=== PATIENT | female | born 1990 | race Caucasian/White ===

== ENCOUNTER 2018-06-09 02:35 | Emergency (ER) | payer MEDICAID, OTHER ==
[~2018-06-09] VITALS: Ht 157.5 cm; Wt 79.2 kg
[2018-06-09 03:05] LABS: CLARITY,URINE CLOUDY (Clear); COLOR,URINE YELLOW (Yellow); GLUCOSE, URINE NEGATIVE (Neg); KETONES,URINE TRACE mg/dl (Neg); LEUKOCYTE ESTERASE ,URINE MODERATE (Neg); NITRITES, URINE POSITIVE (Neg); OCCULT BLOOD,URINE LARGE (Neg); PH,URINE 5.5 (4.8-8.0); PROTEIN,URINE NEGATIVE (Neg); UROBILINOGEN,URINE 0.2 E.U/dL (0.2-1.0)
[2018-06-09 03:08] LABS: UA COLLECTION TYPE CLN CATCH MIDSTREAM
[2018-06-09 03:21] LABS: WBC,URINE TNTC /HPF (0-4)
[2018-06-09 03:22] LABS: BACTERIA,URINE 3+ /HPF (Neg); MUCUS STRANDS NONE SEEN /LPF (Neg); RBC,URINE 20-50 /HPF (0-2); SQUAMOUS EPITHELIAL CELL,UR FEW /LPF (FEW); WBC CLUMPS,URINE FEW /HPF (NEGATIVE)
[2018-06-09] MEDS ORDERED: CEPH250T PO (03:54)
[2018-06-09 04:08] VITALS: BP 130/86
== END 2018-06-09 04:11 | disposition home or self-care (01) ==
LOC: ER 02:36
DX: N39.0 Urinary tract infection, site not specified (principal); E07.9 Disorder of thyroid, unspecified; Z79.899 Other long term (current) drug therapy; Z87.442 Personal history of urinary calculi; Z90.49 Acquired absence of other specified parts of digestive tract
CPT/HCPCS: 81001; 87077; 87088; 87186; 99283; 99284

== ENCOUNTER 2019-07-20 02:32 | Emergency (ER) | payer MEDICAID, OTHER ==
[~2019-07-20] VITALS: Ht 157.5 cm; Wt 66.3 kg
[2019-07-20] MEDS ORDERED: pantoprazole 40 MG vial IV ONE (03:00)
[2019-07-20] MEDS ORDERED: normal saline 1000ML IV soln IVB ONE (03:00)
[2019-07-20] MEDS ORDERED: famotidine/PF 10 mg/ml inj IV ONE (03:00)
[2019-07-20] MEDS ORDERED: metoclopramide 5 mg/ml inj IV ONE (03:00)
[2019-07-20] MEDS ORDERED: ketorolac trometh. 30mg/ml inj. IV ONE (03:00)
[2019-07-20] MEDS ORDERED: diphenhydrAMINE 50 mg/ml inj IV ONE (03:00)
[2019-07-20 03:07] LABS: CLARITY,URINE SLIGHTLY CLOUDY (Clear); COLOR,URINE YELLOW (Yellow); GLUCOSE, URINE NEGATIVE (Neg); KETONES,URINE NEGATIVE (Neg); LEUKOCYTE ESTERASE ,URINE NEGATIVE (Neg); NITRITES, URINE NEGATIVE (Neg); OCCULT BLOOD,URINE LARGE (Neg); PROTEIN,URINE NEGATIVE (Neg); UROBILINOGEN,URINE 0.2 E.U/dL (0.2-1.0)
[2019-07-20 03:16] LABS: UA COLLECTION TYPE CLN CATCH MIDSTREAM
[2019-07-20 03:21] LABS: BACTERIA,URINE 2+ /HPF (Neg); MUCUS STRANDS MODERATE /LPF (Neg); RBC,URINE 50-100 /HPF (0-2); SQUAMOUS EPITHELIAL CELL,UR MANY /LPF (FEW); WBC,URINE 0-4 /HPF (0-4)
[2019-07-20 03:27] LABS: BASOPHILS # (AUTO) 0.1 X10'3 (0-0.2); BASOPHILS % (AUTO) 1.2 % (0-1); EOSINOPHILS # (AUTO) 0.7 X10'3 (0-0.9); EOSINOPHILS % (AUTO) 9.6 % (0-6); HEMATOCRIT 33.5 % (35.0-45.0); HEMOGLOBIN 11.2 g/dl (12.0-16.0); LYMPHOCYTES # (AUTO) 2.8 X10'3 (1.1-4.8); LYMPHOCYTES % (AUTO) 39.5 % (21-51); MEAN CORPUSCULAR HEMOGLOBIN 26.8 PG (27.0-31.0); MEAN CORPUSCULAR HGB CONC 33.3 g/dL (33.0-36.5); MEAN CORPUSCULAR VOLUME 80.3 FL (78-98); MEAN PLATELET VOLUME 9.1 FL (7.4-10.4); MONOCYTES # (AUTO) 0.7 X10'3 (0-0.9); MONOCYTES % (AUTO) 9.3 % (2-12); NEUTROPHILS # (AUTO) 2.8 X10'3 (1.8-7.7); NEUTROPHILS % (AUTO) 40.4 % (42-75); PLATELET COUNT 206 X10'3 (140-440); RED BLOOD COUNT 4.17 X10'6 (4.20-5.60); RED CELL DISTRIBUTION WIDTH 17.8 % (11.5-14.5)
[2019-07-20 03:34] LABS: ALANINE AMINOTRANSFERASE 21 U/L (12-78); ALBUMIN 3.7 G/DL (3.4-5.0); ALBUMIN/GLOBULIN RATIO 1.3 (1.1-1.5); ALKALINE PHOSPHATASE 72 IU/L (46-116); ANION GAP 5 (8-16); ASPARTATE AMINO TRANSFERASE 16 U/L (10-37); BILIRUBIN,TOTAL 0.2 MG/DL (0.1-1.0); BLOOD UREA NITROGEN 12 MG/DL (7-18); BUN/CREATININE RATIO 12.1 (6.6-38.0); CALCIUM 8.7 MG/DL (8.5-10.1); CHLORIDE 109 MMOL/L (99-107); CREATININE 0.99 MG/DL (0.40-0.90); GLUCOSE 87 MG/DL (70-104); LIPASE 99 U/L (73-393); SODIUM 144 MMOL/L (135-145); TOTAL CARBON DIOXIDE 30.1 MMOL/L (24-32); TOTAL PROTEIN 6.6 G/DL (6.4-8.2); eGFR 66 ML/MIN
[2019-07-20 03:45] LABS: URINE HCG NEGATIVE (NEG)
[2019-07-20] MEDS ORDERED: morphine 4 MG/ML inj SYRINge IV ONE (03:55)
[2019-07-20 04:21] LABS: URINE AMPHETAMINE SCREEN POSITIVE (Neg); URINE BARBITUATE SCREEN NEGATIVE (Neg); URINE BENZODIAZEPINES SCREEN POSITIVE (Neg); URINE CANNABINOID SCREEN POSITIVE (Neg); URINE COCAINE SCREEN POSITIVE (Neg); URINE METHADONE SCREEN NEGATIVE (Neg); URINE OPIATE SCREEN POSITIVE (Neg); URINE PHENCYCLIDINE SCREEN NEGATIVE (Neg)
[2019-07-20] MEDS ORDERED: HYDR-3965 PO (04:22)
[2019-07-20] MEDS ORDERED: PROM25SU46 RC (04:22)
[2019-07-20] MEDS ORDERED: PANT-47 PO (04:22)
[2019-07-20 04:31] VITALS: BP 100/56
== END 2019-07-20 04:34 | disposition home or self-care (01) ==
LOC: ER 02:33
DX: R10.13 Epigastric pain (principal); F19.10 Other psychoactive substance abuse, uncomplicated; R11.2 Nausea with vomiting, unspecified; F15.90 Other stimulant use, unspecified, uncomplicated; F14.90 Cocaine use, unspecified, uncomplicated; F11.90 Opioid use, unspecified, uncomplicated; Z90.49 Acquired absence of other specified parts of digestive tract; Z98.84 Bariatric surgery status; Z79.899 Other long term (current) drug therapy
CPT/HCPCS: 36415; 80053; 80305; 81001; 81025; 83690; 85025; 96361; 96374; 96375; 99283; C9113; J1200; J1885; J2270; J2765; J3490; J7030

== ENCOUNTER 2019-08-30 18:57 | Emergency (ER) | payer OTHER ==
[~2019-08-30] VITALS: Ht 157.5 cm; Wt 63.0 kg
[~2019-08-30 18:57] MED LIST: PANT-47 PO; PROM25SU46 RC
[2019-08-30] MEDS ORDERED: AMOX-117 PO (20:07)
[2019-08-30] MEDS ORDERED: PRED20TA PO (20:07)
[2019-08-30] MEDS ORDERED: ALBU8.5H8 IH (20:07)
[2019-08-30 20:18] VITALS: BP 134/81
== END 2019-08-30 20:20 | disposition home or self-care (01) ==
LOC: ER 18:57
DX: J20.9 Acute bronchitis, unspecified (principal); F15.90 Other stimulant use, unspecified, uncomplicated; F14.90 Cocaine use, unspecified, uncomplicated; F11.90 Opioid use, unspecified, uncomplicated; F17.200 Nicotine dependence, unspecified, uncomplicated; Z87.442 Personal history of urinary calculi; Z90.49 Acquired absence of other specified parts of digestive tract; Z98.0 Intestinal bypass and anastomosis status; Z79.899 Other long term (current) drug therapy
CPT/HCPCS: 99283

== ENCOUNTER 2020-01-08 12:25 | Emergency (ER) | payer MEDICAID ==
[~2020-01-08] VITALS: Ht 157.5 cm; Wt 61.4 kg
[~2020-01-08 12:25] MED LIST changes: +ALBU8.5H8 IH
[2020-01-08 14:15] LABS: BASOPHILS # (AUTO) 0.1 X10'3 (0-0.2); BASOPHILS % (AUTO) 0.9 % (0-1); EOSINOPHILS # (AUTO) 0.2 X10'3 (0-0.9); EOSINOPHILS % (AUTO) 2.7 % (0-6); HEMATOCRIT 36.4 % (35.0-45.0); HEMOGLOBIN 11.7 g/dl (12.0-16.0); LYMPHOCYTES # (AUTO) 2.2 X10'3 (1.1-4.8); MEAN CORPUSCULAR HEMOGLOBIN 26.6 PG (27.0-31.0); MEAN CORPUSCULAR HGB CONC 32.2 g/dL (33.0-36.5); MEAN CORPUSCULAR VOLUME 82.4 FL (78-98); MEAN PLATELET VOLUME 8.8 FL (7.4-10.4); MONOCYTES # (AUTO) 0.6 X10'3 (0-0.9); MONOCYTES % (AUTO) 8.8 % (2-12); NEUTROPHILS # (AUTO) 3.5 X10'3 (1.8-7.7); NEUTROPHILS % (AUTO) 53.6 % (42-75); PLATELET COUNT 241 X10'3 (140-440); RED BLOOD COUNT 4.42 X10'6 (4.20-5.60); RED CELL DISTRIBUTION WIDTH 16.4 % (11.5-14.5); WHITE BLOOD COUNT 6.5 X10'3 (4.5-11.0)
[2020-01-08 14:23] LABS: ALANINE AMINOTRANSFERASE 21 U/L (12-78); ALBUMIN 3.6 G/DL (3.4-5.0); ALBUMIN/GLOBULIN RATIO 1.1 (1.1-1.5); ALKALINE PHOSPHATASE 65 IU/L (46-116); ANION GAP 6 (8-16); ASPARTATE AMINO TRANSFERASE 16 U/L (10-37); BILIRUBIN,TOTAL 0.4 MG/DL (0.1-1.0); BLOOD UREA NITROGEN 6 MG/DL (7-18); BUN/CREATININE RATIO 7.1 (6.6-38.0); CHLORIDE 107 MMOL/L (99-107); CREATININE 0.84 MG/DL (0.40-0.90); GLUCOSE 88 MG/DL (70-104); LIPASE 60 U/L (73-393); POTASSIUM 4.4 MMOL/L (3.5-5.1); SODIUM 142 MMOL/L (135-145); TOTAL CARBON DIOXIDE 28.9 MMOL/L (24-32); TOTAL PROTEIN 6.9 G/DL (6.4-8.2); eGFR 80 ML/MIN
[2020-01-08 14:30] LABS: URINE HCG NEGATIVE (NEG)
[2020-01-08] MEDS ORDERED: ondansetron 4mg rapidly disintigrating tab PO ONE (14:30)
[2020-01-08] MEDS ORDERED: morphine 4 MG/ML inj SYRINge IM ONE (14:30)
[2020-01-08 14:34] LABS: CLARITY,URINE SLIGHTLY CLOUDY (Clear); COLOR,URINE YELLOW (Yellow); GLUCOSE, URINE NEGATIVE (Neg); KETONES,URINE NEGATIVE (Neg); LEUKOCYTE ESTERASE ,URINE NEGATIVE (Neg); NITRITES, URINE POSITIVE (Neg); OCCULT BLOOD,URINE NEGATIVE (Neg); PH,URINE 6.5 (4.8-8.0); PROTEIN,URINE NEGATIVE (Neg); UA COLLECTION TYPE CLN CATCH MIDSTREAM; UROBILINOGEN,URINE 0.2 E.U/dL (0.2-1.0)
[2020-01-08 14:39] LABS: SQUAMOUS EPITHELIAL CELL,UR MANY /LPF (FEW)
[2020-01-08 14:41] LABS: BACTERIA,URINE 3+ /HPF (Neg); RBC,URINE 0-2 /HPF (0-2); WBC,URINE 0-4 /HPF (0-4)
[2020-01-08] MEDS ORDERED: CEPH250T PO (15:24)
[2020-01-08] MEDS ORDERED: ORPH100T2 PO (15:24)
[2020-01-08] MEDS ORDERED: IBUP-1984 PO (15:24)
--- NOTE | 2020-01-08 15:24 | NUR ---
Attempted IV access x 2 unsuccessfully.
[2020-01-08 16:12] VITALS: BP 107/76
== END 2020-01-08 16:05 | disposition home or self-care (01) ==
LOC: ER 12:27
DX: N39.0 Urinary tract infection, site not specified (principal); M54.12 Radiculopathy, cervical region; R42 Dizziness and giddiness; R60.9 Edema, unspecified; F15.90 Other stimulant use, unspecified, uncomplicated; F14.90 Cocaine use, unspecified, uncomplicated; F11.90 Opioid use, unspecified, uncomplicated; Z87.442 Personal history of urinary calculi; Z90.89 Acquired absence of other organs; Z90.49 Acquired absence of other specified parts of digestive tract; Z98.890 Other specified postprocedural states; Z79.2 Long term (current) use of antibiotics; Z79.899 Other long term (current) drug therapy
CPT/HCPCS: 36415; 70450; 72125; 80053; 81001; 81025; 83690; 85025; 93005; 96372; 99285; J2270

== ENCOUNTER 2020-03-19 03:18 | Emergency (ER) | payer MEDICAID ==
[~2020-03-19] VITALS: Ht 157.5 cm; Wt 69.7 kg
[~2020-03-19 03:18] MED LIST changes: +ORPH100T2 PO
[2020-03-19 03:21] VITALS: BP 120/76
--- NOTE | 2020-03-19 03:27 | NUR ---
IN TRIAGE ASSESSING PATIENT
== END 2020-03-19 03:42 | disposition home or self-care (01) ==
LOC: ER 03:19
DX: R56.9 Unspecified convulsions (principal); F15.90 Other stimulant use, unspecified, uncomplicated; F14.90 Cocaine use, unspecified, uncomplicated; F11.90 Opioid use, unspecified, uncomplicated; Z87.442 Personal history of urinary calculi; Z90.49 Acquired absence of other specified parts of digestive tract; Z90.12 Acquired absence of left breast and nipple; Z79.899 Other long term (current) drug therapy
CPT/HCPCS: 99284

== ENCOUNTER 2020-05-04 09:31 | Outpatient (CLI) | payer MEDICAID ==
[~2020-05-04 09:31] MED LIST changes: -PROM25SU46 RC; +PROM25SU9 RC
== END 2020-05-04 23:59 | disposition home or self-care (01) ==
LOC: RAD 09:31
PROVIDERS: ATTEND Family Medicine
DX: G40.909 Epilepsy, unspecified, not intractable, without status epilepticus (principal)
CPT/HCPCS: 95816

== ENCOUNTER 2020-05-05 02:22 | Emergency (ER) | payer MEDICAID | END 2020-05-05 02:53 | disposition left against medical advice (07) | LOC: ER 02:22 | DX: R56.9 Unspecified convulsions (principal); Z53.21 Procedure and treatment not carried out due to patient leaving prior to being seen by health care provider ==

== ENCOUNTER 2020-06-08 16:48 | Emergency (ER) | payer MEDICAID ==
[~2020-06-08] VITALS: Ht 157.5 cm; Wt 70.0 kg
[2020-06-08 16:59] VITALS: BP 106/61
== END 2020-06-08 18:04 | disposition left against medical advice (07) ==
LOC: ER 16:49
DX: R56.9 Unspecified convulsions (principal); R51.9 Headache, unspecified; Z53.21 Procedure and treatment not carried out due to patient leaving prior to being seen by health care provider

== ENCOUNTER 2021-04-29 17:59 | Emergency (ER) | payer MEDICAID ==
[~2021-04-29] VITALS: Ht 157.5 cm; Wt 63.6 kg
[~2021-04-29 17:59] MED LIST changes: +ALBU8.5H17 IH; -ALBU8.5H8 IH
[2021-04-29 18:06] VITALS: BP 131/79
[2021-04-29 19:11] LABS: MONOTEST NEGATIVE (Neg)
[2021-04-29] MEDS ORDERED: DOXY-1 PO (19:35)
== END 2021-04-29 19:54 | disposition home or self-care (01) ==
LOC: ER 18:00
DX: L03.211 Cellulitis of face (principal); F15.10 Other stimulant abuse, uncomplicated; F11.10 Opioid abuse, uncomplicated; F14.10 Cocaine abuse, uncomplicated; Z87.442 Personal history of urinary calculi
CPT/HCPCS: 36415; 86308; 99283